=== PATIENT | female | born 1995 | race Two or more races ===

== ENCOUNTER 2017-05-06 12:57 | Emergency (ER) | payer MEDICAID ==
[~2017-05-06] VITALS: Ht 162.6 cm; Wt 83.9 kg
[2017-05-06 14:48] VITALS: BP 100/61
[2017-05-06] MEDS ORDERED: LIDOCAINE 1% (LOCAL ANESTH.) PF 5ml SDV IJ ONE (15:00)
== END 2017-05-06 15:39 | disposition home or self-care (01) ==
LOC: ER 12:57
DX: S91.312A Laceration without foreign body, left foot, initial encounter (principal); W54.0XXA Bitten by dog, initial encounter; Y93.89 Activity, other specified; Y99.8 Other external cause status; Y92.89 Other specified places as the place of occurrence of the external cause
CPT/HCPCS: 12001